=== PATIENT | female | born 1980 | race Two or more races ===

== ENCOUNTER 2019-10-13 06:02 | Emergency (ER) | payer OTHER ==
[~2019-10-13] VITALS: Ht 160 cm; Wt 71.7 kg
== END 2019-10-13 09:21 | disposition home or self-care (01) ==
LOC: ER 06:02
DX: S01.121A Laceration with foreign body of right eyelid and periocular area, initial encounter (principal); W45.8XXA Other foreign body or object entering through skin, initial encounter; Y93.89 Activity, other specified; Y92.89 Other specified places as the place of occurrence of the external cause; Y99.8 Other external cause status

== ENCOUNTER 2019-10-22 22:30 | Emergency (ER) | payer OTHER ==
[~2019-10-22] VITALS: Ht 160 cm; Wt 70.3 kg
== END 2019-10-23 01:05 | disposition home or self-care (01) ==
LOC: ER 22:30
DX: Z48.02 Encounter for removal of sutures (principal)